=== PATIENT | male | born 1965 | race Caucasian/White ===

== ENCOUNTER 2022-11-03 05:55 | Emergency (ER) | payer MEDICAID ==
[~2022-11-03] VITALS: Ht 182.9 cm; Wt 81.6 kg
[2022-11-03 08:27] LABS: BASOPHILS % 0.6 % (0.0-2.0); EOSINOPHILS % 3.4 % (0.0-5.0); HEMATOCRIT. 40.3 % (42.0-52.0); HEMOGLOBIN. 13.7 g/dL (14.0-18.0); LYMPHOCYTES % 31.3 % (20.0-50.0); MEAN CORPUSCULAR HEMOGLOBIN 29.8 pg (28.0-32.0); MEAN CORPUSCULAR VOLUME 87.7 fL (80.0-94.0); MONOCYTES % 10.9 % (2.0-8.0); NEUTROPHILS % 53.8 % (40.0-76.0); PLATELET 204 x1000/uL (130-400); RED CELL DISTRIBUTION WIDTH 15.4 % (11.6-14.6)
[2022-11-03 08:35] LABS: CHLORIDE 110 mEq/L (98-107)
[2022-11-03 08:39] LABS: INR 1.1; PARTIAL THROMBOPLASTIN TIME 28.6 sec (23.4-31.0); PROTHROMBIN TIME 11.4 sec (9.6-11.0)
[2022-11-03] MEDS ORDERED: CLONIDINE 0.2MG TABLET PO NR (09:15)
[2022-11-03 09:18] VITALS: BP 154/111
[2022-11-03 10:50] LABS: CLARITY URINE CLEAR (CLEAR); COLOR URINE YELLOW (YELLOW); KETONES URINE NEGATIVE (NEGATIVE); LEUKOCYTE ESTERASE URINE NEGATIVE (NEGATIVE); NITRITE URINE NEGATIVE (NEGATIVE); OCCULT BLOOD URINE TRACE (NEGATIVE); PH URINE 5.5 (4.5-8.0); PROTEIN URINE TRACE (NEGATIVE); SPECIFIC GRAVITY URINE 1.023 (1.005-1.030)
[2022-11-03] MEDS ORDERED: AMLO5TAB88 MT (13:12)
== END 2022-11-03 13:29 | disposition home or self-care (01) ==
LOC: ER 05:55
DX: I10 Essential (primary) hypertension (principal); F17.200 Nicotine dependence, unspecified, uncomplicated
CPT/HCPCS: 36415; 71045; 80053; 81003; 84484; 85025; 85610; 85730; 93005; 99285; Z7610

== ENCOUNTER 2025-04-26 01:09 | Emergency (ER) | payer MEDICAID ==
[~2025-04-26] VITALS: Ht 167.6 cm; Wt 80.2 kg
[~2025-04-26 01:09] MED LIST: AMLO5TAB88 MT
[2025-04-26 01:13] VITALS: O2SAT 99
[2025-04-26] MEDS: KETOROLAC 30MG/ML VIAL IM ONE (02:45)
[2025-04-26] MEDS: CYCLOBENZAPRINE 10MG TABLET PO ONE (02:46)
[2025-04-26] MEDS ORDERED: CYCL10TA21 MT (03:50)
[2025-04-26] MEDS ORDERED: NAPR-1176 MT (03:50)
[2025-04-26 04:00] VITALS: BP 143/95; PULSE 66; RESP 15; TEMP 36.7; O2SAT 100
== END 2025-04-26 04:07 | disposition home or self-care (01) ==
LOC: ER 01:09
DX: G89.29 Other chronic pain (principal); M54.50 Low back pain, unspecified
CPT/HCPCS: 99283; 96372; J1885